=== PATIENT | male | born 1960 | race African-American/Black ===

== ENCOUNTER 2019-04-15 04:50 | Day surgery (SDC) | payer BC ==
[2019-04-13 18:03] VITALS: BMI 29.9
--- NOTE | 2019-04-13 18:31 | PREOP ---
DATE OF ADMISSION: 04/15/2019 ADMISSION DIAGNOSIS: Chronic pansinusitis, nasal polyps, anosmia. HISTORY OF PRESENT ILLNESS: This 59-year-old male has had a longstanding history of chronic nasal and sinus problems. He has undergone previous sinus surgery in the past. Since his last procedure, he has had recurrence of his symptoms, and now he has sinus pressure, significant obstruction related to marked swollen nasal polyps bilaterally, and anosmia. He has been treated intermittently with oral steroids. He has also been under the care of Dr. Huerta. He is now admitted for endoscopic sinus surgery to address ethmoid, maxillary, sphenoid, and frontal sinuses under image guidance. PAST MEDICAL HISTORY: Primary medical doctor is Dr. Rene Gutierres. Patient does have a significant medical history of kidney tumor and underwent kidney surgery in 2013. He has also had endoscopic sinus surgery in 2004. He has a history of allergies, asthma, diabetes, elevated cholesterol, hypertension, and nasal allergy. He is allergic to ASPIRIN, which produces an asthma attack. There is no abnormal bleeding. SOCIAL HISTORY: He does not smoke. FAMILY HISTORY: Negative for bleeding or anesthesia problems. REVIEW OF SYSTEMS: Patient denies fevers, sore throat, diplopia, abdominal pain, headache, or active cough. PHYSICAL EXAMINATION: General: Patient is a well-developed male in no acute distress. HEENT: Head is normal. Eyes are clear. Ears are unremarkable. The voice is markedly hyponasal. The nose has significant nasal polyps, which are large and obstructive. These fill the middle meatus and inferior meatus as well as the sphenoid ethmoid recesses. DATA: Preoperative labs are pending. CT scan of the paranasal sinuses performed at [facility] on February 12, 2018, show total opacification of the ethmoid air cells. There is subtotal opacification of the sphenoid sinus. Maxillary sinuses are full partial on the right side with suspected polyp. There is also partial opacification of the frontal sinuses. Mild deviation of the septum is present. Cribriform plate is intact. The orbits appear unremarkable. IMPRESSION: Chronic pansinusitis with polyposis, recurrent. Prior endoscopic sinus surgery approximately 14 years ago. Significant obstruction and patient cannot continue intermittent oral steroids because of its effects on his blood sugar. PLAN: To address ethmoid, maxillary, frontal, and sphenoid sinuses under general anesthesia with image guidance. INFORMED CONSENT: Patient understands the indications, alternatives, nature, risks, and benefits of proposed surgery, potential complications including, but not limited to, anesthesia, bleeding, infection, recurrence, numbness, reduced sense of smell, eye injury or brain injury were discussed in detail. He understands and accepts these risks and wish to proceed with surgery. Questions are answered fully. MERON ROBERSON M.D. [id number]
[~2019-04-15 04:50] MED LIST: LIDOCAINE 1%/EPI 1:100000 (20 ML MULTI DOSE VIAL) IJ ONE
[2019-04-15] MEDS ORDERED: LIDOCAINE 1%-EPI 1:100,000 30 ML MDV IJ ONE (07:20)
[2019-04-15] MEDS ORDERED: BACITRACIN 15 GM TUBE TOPICAL OINTMENT ONE (07:21)
[2019-04-15] MEDS ORDERED: SUCCINYLCHOLINE CHLORIDE 200 MG/10 ML SYRINGE ONE (07:31)
[2019-04-15] MEDS ORDERED: PROPOFOL 20 ML ONE ×2 (07:31→10:07)
[2019-04-15] MEDS ORDERED: MIDAZOLAM HCL 2 MG/2 ML SINGLE DOSE VIAL ONE (07:31)
[2019-04-15] MEDS ORDERED: ROCURONIUM BROMIDE 50 MG/5 ML SYRINGE ONE (07:31)
[2019-04-15] MEDS ORDERED: LIDOCAINE HCL/PF 2% SDV 5ML VIAL ONE ×2 (07:32→07:33)
[2019-04-15] MEDS ORDERED: DEXAMETHASONE SOD PHOSPHATE 4 MG/1 ML VIAL ONE (07:32)
[2019-04-15] MEDS ORDERED: SODIUM CHLORIDE 0.9% P/F 10 ML VIAL IJ ONE (07:33)
[2019-04-15] MEDS ORDERED: COCAINE HCL 4% TOPICAL SOLUTION 4 ML BOTTLE TP ONE ×3 (07:35→08:25)
[2019-04-15] MEDS ORDERED: DEXMEDETOMIDINE HCL 200 MCG/2 ML IVPB ONE (07:36)
--- NOTE | 2019-04-15 08:00 | HP ---
History & Physical Update - History History: No Change - Physical Physical: No Change - Assessment Assessment: No Change - Plan Plan: No Change
[2019-04-15] MEDS ORDERED: NEOSTIGMINE METHYLSULFATE 0.5 MG/ML - 10 ML MDV ONE (08:31)
[2019-04-15] MEDS ORDERED: GLYCOPYRROLATE 0.2 MG/1 ML VIAL ONE (08:31)
[2019-04-15] MEDS ORDERED: ONDANSETRON 4 MG/2 ML VIAL IVPUSH PRN (08:49)
[2019-04-15] MEDS ORDERED: ACETAMINOPHEN 1000 MG/100 ML VIAL (NON FORMULARY) IVPB ONE ×2 (08:49→10:48)
[2019-04-15] MEDS ORDERED: LIDOCAINE 1%/EPI 1:100000 (20 ML MULTI DOSE VIAL) IJ ONE ×3 (08:56)
[2019-04-15] MEDS ORDERED: LACTATED RINGERS SOLUTION 1,000 ML IV SCH (09:00)
[2019-04-15] MEDS ORDERED: GELATIN, ABSORBABLE 100 EACH SPONGE TP ONE (09:59)
[2019-04-15] MEDS ORDERED: ONDANSETRON 4 MG/2 ML VIAL ONE (10:27)
--- NOTE | 2019-04-15 10:27 | OP ---
Operative Note - Note: Operative Date: 04/15/19 Pre-Operative Diagnosis: chronic pansinusitis with polyposis, anosmia Operation: 1. bilateral endoscopic ethmoidectomy, anterior and posterior, 2. bilateral endoscopic sphenoidotomy, 3. bilateral maxillary sinus antrostomy with removal of tissue, 4. bilateral frontal sinus exploration, 5. image guidance Findings: severe nasal and sinus polyposis with obstruction nasopharynx clear Implants: none Post-Operative Diagnosis: Same as Pre-op Surgeon: Tiburcio Walker Anesthesiologist/CLIENT EXPERIENCE ADMINISTRATOR: Chema Tejada Anesthesia: General Specimens Removed: left nasal polyps, ethmoid and maxillary sinus tissue. right nasal polyps, ethmoid and maxillary sinus tissue. right and left ethmoid tissue Estimated Blood Loss (mls): 75 Drains & Tubes with Location: none Blood Volume Replaced (mls): 0 Fluid Volume Replaced (mls): 1,000 Operative Report Dictated: Yes
[2019-04-15] MEDS ORDERED: oxyCODONE HCL 5 MG TABLET PO PRN (10:34)
[2019-04-15] MEDS ORDERED: ACETAMINOPHEN INJECTION 100 ML IVPB ONE (10:43)
[2019-04-15 13:32] VITALS: TEMP 98
[2019-04-15 15:18] VITALS: BP 145/85; PULSE 70
--- NOTE | 2019-04-17 17:24 | PATH ---
Surgical Pathology Report Patient Name: NICOLAS MCCRACKEN [facility]. Rec. #: [id number] /Age/Gender: 1960 (Age: 59) / M Account: [id number] Location: [facility] SURGICAL Taken: 04/15/2019 Received: 04/15/2019 Reported: 04/17/2019 Physicians: Tiburcio Walker M.D. Specimen(s) Received A: LEFT NASAL POLYP, ETHMOID AND MAXILLARY TISSUE B: RIGHT NASAL POLYP, ETHMOID AND MAXILLARY TISSUE C: RIGHT AND LEFT ETHMOID TISSUE Clinical History Nasal polyp Final Diagnosis A. LEFT NASAL POLYP, ETHMOID AND MAXILLARY TISSUE, EXCISION: FRAGMENTS OF INFLAMMATORY POLYPS. CHRONIC SINUSITIS. B. RIGHT NASAL POLYP, ETHMOID AND MAXILLARY TISSUE, EXCISION: FRAGMENTS OF INFLAMMATORY POLYPS. CHRONIC SINUSITIS. C. RIGHT AND LEFT ETHMOID TISSUE, EXCISION: FRAGMENTS OF INFLAMMATORY POLYPS. CHRONIC SINUSITIS. Electronically Signed Mercedes Zamorano M.D. Gross Description A. Received in formalin labeled "left nasal polyp and ethmoid and maxillary tissue," is a 3.5 x 3.5 x 0.4 cm aggregate of gambino, polypoid portions of soft tissue. The specimen is entirely submitted in 2 cassettes. B. Received in formalin labeled "right nasal polyp and ethmoid and maxillary tissue," is a 2.4 x 2.1 x 0.9 cm gambino, polypoid portion of soft tissue. Also received within the same container is a 3.0 x 3.0 x 0.5 cm aggregate of gambino, smaller, polypoid portions of soft tissue. The specimen is entirely submitted in 4 cassettes as follows: 1-2-largest bisected polyp; 9-2-mcrtwtuoqx polypoid tissue fragments. C. Received in formalin labeled "right and left ethmoid tissue," is a 6.5 x 4.5 x 0.5 cm aggregate of gambino-brown soft tissue fragments. A tour sales representative portion is submitted in 4 cassettes. 04/16/2019 [facility]04/16/2019
--- NOTE | 2019-04-30 11:05 | OP ---
DATE OF OPERATION: 04/15/2019 PREOPERATIVE DIAGNOSIS: Chronic pansinusitis with polyposis, anosmia. POSTOPERATIVE DIAGNOSIS: Chronic pansinusitis with polyposis, anosmia. PROCEDURES: 1. Bilateral endoscopic ethmoidectomy anterior and posterior. 2. Bilateral endoscopic sphenoidotomy. 3. Bilateral maxillary sinus antrostomy with removal of tissue. 4. Bilateral frontal sinus exploration. 5. Nasal polypectomy, extensive, bilateral. 6. Image guidance. SURGEON: Tiburcio Walker MD ANESTHESIOLOGIST: Chema Tejada CRNA ANESTHESIA: General via endotracheal tube. INDICATIONS: This 59-year-old male has had a longstanding history of chronic sinusitis. He also has asthma ASPIRIN sensitivity. He has had previous sinus surgery many years ago with success; however, over time, he has had recurrence of his chronic sinusitis with polyposis. He has for the last several years had significant nasal obstruction requiring oral steroids to reduce swelling and restore nasal breathing, and he has also had recurrent infections requiring antibiotics. This has also exacerbated his started having. Examination demonstrates significant bilateral nasal polyposis. CT scans demonstrates chronic pansinusitis with near opacification of all of his sinuses. He is now brought to surgery for treatment. FINDINGS: Severe nasal and sinus polyposis with airway and ostial obstruction. Nasopharynx was clear. DESCRIPTION OF PROCEDURE: Patient was brought to the operating room and placed on the operating table in supine position. General endotracheal anesthesia was induced to a satisfactory level. He was prepped and draped in the usual fashion for surgery. CT scan data was loaded to the [employer] system. Patient was registered, and this was used intermittently during the case to confirm anatomic location and guide dissection. The accessible veins with polyps were infiltrated with 1% lidocaine with epinephrine 1:100,000. Cocaine 4% was placed within nasal cavities. Nasal polypectomy was performed with the ethmoid forceps and the [employer] microdebrider. On the left side, significant polyps were removed from the middle meatus and from the sphenoethmoid recess. Middle turbinate remnant was identified and preserved. Left ethmoidectomy was then performed. Anterior and posterior ethmoid areas were freed of obstructive tissue. The lamina papyracea and the fovea ethmoidalis were preserved. The obstructed left maxillary sinus ostium was then freed of tissue. Polypoid tissue was also removed from the maxillary sinus. There was no active purulence. Sphenoidotomy was then opened, and thick mucus was aspirated from the sphenoid sinus. Finally, the frontal recess was dissected and freed of significant polypoid tissue enlarging the drainage pathway. Attention was then turned toward the right paranasal sinuses. Again, extensive polypectomy was performed with the forceps and [employer]omed microdebrider. Next, the ethmoid sinus was opened, and anterior and posterior areas were then cleared of polypoid disease. Again, the lamina papyracea and the fovea ethmoidalis were preserved. The maxillary sinus was then opened and polypoid tissue removed via the antrostomy. The right sphenoethmoid recess was cleared of polypoid tissue and the sphenoidotomy opened. Thick mucus was also aspirated from the sphenoid sinus. Finally, the right frontal recess was approached, and polypoid tissue was removed opening the drainage pathway. Final inspection demonstrated open sinuses and markedly open airways. Intermittent cauterization with suction cautery was used for hemostasis. NasoPore dressings were placed and then folded Telfa gauze coated with antibiotic ointment and joined anteriorly with a silk suture left in the inferior nasal cavities. Patient tolerated the procedure well. He was then awakened from general anesthesia and transferred to PACU in stable condition. Estimated blood loss was 75 mL. He received crystalloid during the procedure. Specimens included left nasal polyps, ethmoid maxillary sinus tissue, right nasal polyps, ethmoid and maxillary sinus tissue as well as right and left ethmoid tissue, which was collected via the suction trap from the microdebrider. There were no complications. Darby [id number]
== END 2019-04-15 15:00 | disposition home or self-care (01) ==
LOC: JASU-SURG 04:50
PROVIDERS: ATTEND Otolaryngology
PROC: 09BU4ZZ Excision of Right Ethmoid Sinus, Percutaneous Endoscopic Approach (ICD-10-PCS; 2019-04-15)
PROC: 09BK0ZZ Excision of Nasal Mucosa and Soft Tissue, Open Approach (ICD-10-PCS; 2019-04-15)
PROC: 09BV4ZZ Excision of Left Ethmoid Sinus, Percutaneous Endoscopic Approach (ICD-10-PCS; principal; 2019-04-15 08:00)
DX: J32.4 Chronic pansinusitis (principal); J33.8 Other polyp of sinus; R43.0 Anosmia
CPT/HCPCS: 82962; 88304-TC; 94760; J0131